=== PATIENT | female | born 1990 | race Caucasian/White ===

== ENCOUNTER 2017-08-03 17:27 | Emergency (ER) | payer MEDICAID ==
[~2017-08-03] VITALS: Ht 172.7 cm; Wt 95.3 kg
[2017-08-03 19:13] VITALS: BP 130/88
== END 2017-08-03 19:14 | disposition home or self-care (01) ==
LOC: ER 17:30
DX: J02.8 Acute pharyngitis due to other specified organisms (principal)
CPT/HCPCS: 87081; 87880; 99284